=== PATIENT | male | born 1950 | race Caucasian/White ===

== ENCOUNTER 2017-09-30 14:06 | Emergency (ER) | payer BC ==
[~2017-09-30] VITALS: Ht 175.2 cm; Wt 82.6 kg
[~2017-09-30 14:06] MED LIST: ASPIRIN81 M1 PO; Coumadin5 MG PO; FERROUS SULFAT325 MG PO; FERROUS SULFATE1 GRA; KLOR-CON 1010 MEQ PO; LISINOPRIL40 MG PO; LOMOTIL 0.025 M1 TA1 PO; LOPRESSOR25 MG PO; OXYCODONE5 MG PO; PERCOCET 325 MG1 TA2 PO; PRAVACHOL20 MG PO; PRAVASTATIN SOD40 MG PO; PROTONIX40 MG PO; RANITIDINE150 MG; ZESTRIL5 MG PO; ZOFRAN ODT8 MG PO
[2017-09-30 14:47] LABS: BASO # 0.1 10*3/uL (0.0-0.1); BASO % 1.1 % (0.0-1.0); EOS # 0.2 10*3/uL (0.0-0.4); HEMATOCRIT 42.9 % (42.0-52.0); HEMOGLOBIN 14.7 g/dl (14.0-18.0); LYMPH # 2.3 10*3/uL (1.3-4.4); LYMPH % 30.5 % (27.0-41.0); MEAN CELL VOLUME 93.9 fl (80.0-94.0); MEAN CORPUSCULAR HGB 32.2 pg (27.0-31.0); MEAN CORPUSCULAR HGB CONC 34.3 g/dl (33.0-37.0); MEAN PLATELET VOLUME 10.5 fl (9.6-12.3); MONO # 0.6 10*3/uL (0.1-1.0); MONO % 7.8 % (3.0-9.0); NEUT # 4.3 10*3/uL (2.3-7.9); NEUT % 57.3 % (47.0-73.0); PLATELET COUNT AUTOMATED 212 10*3/uL (130-400); RED BLOOD COUNT 4.57 10*6/uL (4.50-5.90); RED CELL DISTRI WIDTH 14.5 % (0-14.5); WHITE BLOOD COUNT 7.5 10*3/uL (4.8-10.8)
[2017-09-30 15:04] LABS: ALKALINE PHOSPHATASE 68 U/L (45-117); BUN 14 mg/dl (7-24); CHLORIDE 108 mmol/L (98-107); CREATININE 0.94 mg/dL (0.70-1.30); POTASSIUM 3.5 mmol/L (3.5-5.1); SGOT/AST 30 IU/L (3-35); SGPT/ALT 36 U/L (12-78); SODIUM 145 mmol/L (136-145); TOTAL PROTEIN 7.8 gm/dL (6.4-8.2)
[2017-09-30 15:07] LABS: TROPONIN I < 0.015 ng/ml (<0.045)
[2017-09-30] MEDS ORDERED: AVPAK AZITHROM250 M1 PO (16:01)
== END 2017-09-30 16:03 | disposition home or self-care (01) ==
LOC: ED 14:06
PROVIDERS: Nurse Practitioner Family
DX: J18.8 Other pneumonia, unspecified organism (principal); R03.0 Elevated blood-pressure reading, without diagnosis of hypertension; Z88.0 Allergy status to penicillin; Z79.899 Other long term (current) drug therapy; Z79.02 Long term (current) use of antithrombotics/antiplatelets; Z79.82 Long term (current) use of aspirin

== ENCOUNTER 2017-10-06 10:06 | Emergency (ER) | payer OTHER, BC ==
[~2017-10-06] VITALS: Ht 182.8 cm; Wt 78.9 kg
[~2017-10-06 10:06] MED LIST changes: +AVPAK AZITHROM250 M1 PO
[2017-10-06 10:47] LABS: BASO # 0.1 10*3/uL (0.0-0.1); BASO % 1.2 % (0.0-1.0); EOS # 0.2 10*3/uL (0.0-0.4); EOS % 2.6 % (1.0-4.0); HEMATOCRIT 42.6 % (42.0-52.0); HEMOGLOBIN 14.6 g/dl (14.0-18.0); LYMPH # 1.8 10*3/uL (1.3-4.4); LYMPH % 27.4 % (27.0-41.0); MEAN CELL VOLUME 94.2 fl (80.0-94.0); MEAN CORPUSCULAR HGB 32.3 pg (27.0-31.0); MEAN CORPUSCULAR HGB CONC 34.3 g/dl (33.0-37.0); MEAN PLATELET VOLUME 10.4 fl (9.6-12.3); MONO # 0.6 10*3/uL (0.1-1.0); MONO % 8.5 % (3.0-9.0); NEUT % 60.1 % (47.0-73.0); PLATELET COUNT AUTOMATED 197 10*3/uL (130-400); RED BLOOD COUNT 4.52 10*6/uL (4.50-5.90); RED CELL DISTRI WIDTH 14.2 % (0-14.5); WHITE BLOOD COUNT 6.6 10*3/uL (4.8-10.8)
[2017-10-06 11:01] LABS: ALBUMIN 3.8 gm/dl (3.1-4.5); ALKALINE PHOSPHATASE 69 U/L (45-117); BUN 15 mg/dl (7-24); CHLORIDE 107 mmol/L (98-107); CREATININE 0.93 mg/dL (0.70-1.30); POTASSIUM 2.9 mmol/L (3.5-5.1); SGOT/AST 17 IU/L (3-35); SGPT/ALT 26 U/L (12-78); SODIUM 140 mmol/L (136-145); TOTAL PROTEIN 7.4 gm/dL (6.4-8.2)
[2017-10-06] MEDS ORDERED: KLOR-CON 88 ME1 PO (13:24)
== END 2017-10-06 13:43 | disposition home or self-care (01) ==
LOC: ED 10:06
PROVIDERS: Emergency Medicine
DX: E78.6 Lipoprotein deficiency (principal); Z79.82 Long term (current) use of aspirin; Z79.01 Long term (current) use of anticoagulants; Z88.0 Allergy status to penicillin

== ENCOUNTER 2017-12-17 20:23 | Inpatient (IN) | payer MEDICARE, BC ==
[~2017-12-17] VITALS: Ht 175.2 cm; Wt 81.8 kg
--- NOTE | ~2017-12-17 | PR ---
[place], [place] PROGRESS NOTE NAME: RENO GARCIA UNIT #: [id number] ROOM: 428 DOCTOR: LIN FOWLER MD BIRTHDATE: [birth year] DOS: 12/19/2017 The patient has been admitted to hospital with multiple fractures of the ribs. He is feeling better and he is being discharged. His discharge summary has already been dictated. He is feeling stable and will be followed by Dr. Moffett in the office next week. LIN FOWLER MD CM:PNTRANS [id number] LIN FOWLER MD 12/19/172026 interface
[~2017-12-17 20:23] MED LIST changes: +KLOR-CON 88 ME1 PO
[2017-12-17 20:32] VITALS: BP 141/76
[2017-12-17 21:25] LABS: BASO # 0.1 10*3/uL (0.0-0.1); BASO % 0.4 % (0.0-1.0); EOS # 0.1 10*3/uL (0.0-0.4); EOS % 0.9 % (1.0-4.0); HEMATOCRIT 42.5 % (42.0-52.0); HEMOGLOBIN 14.8 g/dl (14.0-18.0); LYMPH # 1.2 10*3/uL (1.3-4.4); LYMPH % 8.9 % (27.0-41.0); MEAN CELL VOLUME 92.8 fl (80.0-94.0); MEAN CORPUSCULAR HGB 32.3 pg (27.0-31.0); MEAN CORPUSCULAR HGB CONC 34.8 g/dl (33.0-37.0); MONO # 0.9 10*3/uL (0.1-1.0); MONO % 6.4 % (3.0-9.0); NEUT # 11.1 10*3/uL (2.3-7.9); PLATELET COUNT AUTOMATED 175 10*3/uL (130-400); RED BLOOD COUNT 4.58 10*6/uL (4.50-5.90); RED CELL DISTRI WIDTH 12.9 % (0-14.5); WHITE BLOOD COUNT 13.4 10*3/uL (4.8-10.8)
[2017-12-17 21:35] LABS: ACT PARTIAL THROMBO TIME 24.7 SECONDS (20.8-31.5)
[2017-12-17 21:52] VITALS: BP 118/76
[2017-12-17 21:55] LABS: ALBUMIN 3.8 gm/dl (3.1-4.5); ALKALINE PHOSPHATASE 57 U/L (45-117); BUN 19 mg/dl (7-24); CHLORIDE 104 mmol/L (98-107); CREATININE 1.13 mg/dL (0.70-1.30); LIPASE 115 U/L (73-393); POTASSIUM 3.6 mmol/L (3.5-5.1); SGOT/AST 25 IU/L (3-35); SGPT/ALT 28 U/L (12-78); SODIUM 139 mmol/L (136-145); TOTAL PROTEIN 7.3 gm/dL (6.4-8.2); TROPONIN I < 0.015 ng/ml (<0.045)
[2017-12-17 22:27] LABS: BILIRUBIN NEGATIVE (NEGATIVE); BLOOD NEGATIVE (NEGATIVE); CLARITY SL CLOUDY (CLEAR); COLOR YELLOW (YELLOW); GLUCOSE NEGATIVE (NEGATIVE); KETONE TRACE (NEGATIVE); LEUKO ESTERASE NEGATIVE (NEGATIVE); NITRITE NEGATIVE (NEGATIVE); SPECIFIC GRAVITY 1.025 (1.005-1.030); UROBILINOGEN 0.2 E.U./dl (0.2-1.0)
[2017-12-17 22:33] LABS: BACTERIA TRACE; EPITHELIAL CELLS 0-2; WBC 0-2 wbc/hpf (0-5)
[2017-12-17 23:31] VITALS: BP 104/83
[2017-12-18 01:15] VITALS: BP 101/60
[2017-12-18 01:50] VITALS: BP 128/79
[2017-12-18] MEDS ORDERED: TOPIRAMATE100 M2 PO (02:23)
[2017-12-18] MEDS ORDERED: ZESTORETIC 20-1 EACH PO (02:25)
[2017-12-18] MEDS ORDERED: OMEPRAZOLE D/R20 MG PO (02:28)
[2017-12-18] MEDS ORDERED: ATORVASTATIN CA80 M1 PO (02:32)
[2017-12-18] MEDS ORDERED: VIAGRA100 MG PO (02:32)
[2017-12-18 08:00] VITALS: BP 127/82
[2017-12-18 12:00] VITALS: BP 134/86
[2017-12-18 16:00] VITALS: BP 140/90
[2017-12-18 20:00] VITALS: BP 123/80
[2017-12-19] VITALS: BP 152/78
[2017-12-19 07:01] LABS: BASO # 0.1 10*3/uL (0.0-0.1); BASO % 0.8 % (0.0-1.0); EOS # 0.2 10*3/uL (0.0-0.4); EOS % 1.9 % (1.0-4.0); HEMOGLOBIN 15.2 g/dl (14.0-18.0); LYMPH # 1.4 10*3/uL (1.3-4.4); LYMPH % 13.9 % (27.0-41.0); MEAN CELL VOLUME 93.8 fl (80.0-94.0); MEAN CORPUSCULAR HGB 32.4 pg (27.0-31.0); MEAN CORPUSCULAR HGB CONC 34.5 g/dl (33.0-37.0); MEAN PLATELET VOLUME 10.5 fl (9.6-12.3); MONO # 0.8 10*3/uL (0.1-1.0); NEUT # 7.4 10*3/uL (2.3-7.9); PLATELET COUNT AUTOMATED 168 10*3/uL (130-400); RED BLOOD COUNT 4.69 10*6/uL (4.50-5.90); RED CELL DISTRI WIDTH 13.2 % (0-14.5); WHITE BLOOD COUNT 9.9 10*3/uL (4.8-10.8)
[2017-12-19 07:38] LABS: CHLORIDE 104 mmol/L (98-107); POTASSIUM 3.3 mmol/L (3.5-5.1); SODIUM 139 mmol/L (136-145)
[2017-12-19 07:39] LABS: ACT PARTIAL THROMBO TIME 26.6 SECONDS (20.8-31.5)
[2017-12-19 08:00] VITALS: BP 131/85
[2017-12-19 08:01] LABS: BUN 17 mg/dl (7-24); CHOLESTEROL 202 mg/dL (<200); CREATININE 0.88 mg/dL (0.70-1.30); FREE T4 1.39 ng/dl (0.76-1.46); HDL CHOLESTEROL 71 mg/dl (40-60); LDL CHOLESTEROL 108 mg/dL (9-159); TRIGLYCERIDES 117 mg/dl (<150); VLDL CHOLESTEROL 23 mg/dL (6-40)
[2017-12-19] MEDS ORDERED: PERCOCET 7.5-31 EACH PO (09:12)
[2017-12-19] MEDS ORDERED: SOF-LAX100 MG PO (10:38)
[2017-12-19] MEDS ORDERED: K-TAB20 MEQ PO (11:58)
[2017-12-19] MEDS ORDERED: FOLGARD TABLET1 EACH PO (12:03)
== END 2017-12-19 11:45 | disposition home or self-care (01) | DRG 185 ==
LOC: ED 20:23 → 4E 12-18 00:30 → EDHOLD 12-18 00:30 → 4E 12-18 00:53
PROVIDERS: Emergency Medicine Emergency Medical Services; Internal Medicine
DX: S22.41XA Multiple fractures of ribs, right side, initial encounter for closed fracture (principal); I71.2 Thoracic aortic aneurysm, without rupture; M51.35 Other intervertebral disc degeneration, thoracolumbar region; M54.9 Dorsalgia, unspecified; G89.29 Other chronic pain; I10 Essential (primary) hypertension; K21.9 Gastro-esophageal reflux disease without esophagitis; D72.825 Bandemia; R00.1 Bradycardia, unspecified; E78.2 Mixed hyperlipidemia; E87.6 Hypokalemia; E55.9 Vitamin D deficiency, unspecified; W10.8XXA Fall (on) (from) other stairs and steps, initial encounter; Y93.01 Activity, walking, marching and hiking; Y92.098 Other place in other non-institutional residence as the place of occurrence of the external cause; Z87.891 Personal history of nicotine dependence; Z95.2 Presence of prosthetic heart valve; Z80.3 Family history of malignant neoplasm of breast; Z88.0 Allergy status to penicillin; Z79.82 Long term (current) use of aspirin; Z79.899 Other long term (current) drug therapy; Y99.8 Other external cause status; Y93.89 Activity, other specified

== ENCOUNTER 2017-12-20 08:57 | Inpatient (IN) | payer MEDICARE, BC ==
[~2017-12-20] VITALS: Ht 175.2 cm; Wt 80.3 kg
[2017-12-20] VITALS (7 sets, daily range): BP systolic 122–151; BP diastolic 55–88
--- NOTE | ~2017-12-20 | WRIGHTHP ---
[place], [place] PATIENT HISTORY AND PHYSICAL EXAM NAME: RENO GARCIA UNIT #: [id number] ROOM: 407 DOCTOR: LIN FOWLER MD BIRTHDATE: [birth year] DOS: 12/20/2017 HISTORY OF PRESENT ILLNESS: This is a who was only discharged from the hospital yesterday when he was admitted to hospital with multiple rib fractures and he is still having severe pain and this pain is uncontrollable due to the multiple right-sided rib fractures and he could not handle it. His could not handle at home, so she brought him to an Emergency Department again and admitted to the hospital due to uncontrollable level of pain and may need to be placed in the prison and the patient has been taking Percocet, Colace, vitamin D and he is also taking metoprolol, lisinopril and hydrochlorothiazide, ____, Lipitor 80 mg daily, aspirin 81 mg daily. PHYSICAL EXAMINATION: GENERAL: The patient is in pain. VITAL SIGNS: His temperature 98, pulse 72, respirations 18, blood pressure is 151/88, pulse ox is 96. HEART: Regular. CHEST: He is having decreased breath sound on the right side, but he is having multiple rib tenderness on the right side. ABDOMEN: Soft. LABORATORY DATA: His lab report is essentially unremarkable. ADMITTING DIAGNOSES: The cause for his admission is multiple rib fractures with severe pain, ____, hypertension and history of heart disease in the past. LIN FOWLER MD CM:HISPHYS:PATIENT HISTORY AND PHYSICAL EXAMINATION [id number] LIN FOWLER MD 12/20/17 1356 interface
[~2017-12-20 08:57] MED LIST changes: +ATORVASTATIN CA80 M1 PO; +FOLGARD TABLET1 EACH PO; +K-TAB20 MEQ PO; +OMEPRAZOLE D/R20 MG PO; +PERCOCET 7.5-31 EACH PO; +SOF-LAX100 MG PO; +TOPIRAMATE100 M2 PO; +VIAGRA100 MG PO; +ZESTORETIC 20-1 EACH PO
[2017-12-20 10:14] LABS: BASO # 0.1 10*3/uL (0.0-0.1); BASO % 0.8 % (0.0-1.0); EOS # 0.2 10*3/uL (0.0-0.4); EOS % 2.1 % (1.0-4.0); HEMATOCRIT 40.7 % (42.0-52.0); HEMOGLOBIN 14.3 g/dl (14.0-18.0); LYMPH # 1.1 10*3/uL (1.3-4.4); LYMPH % 12.7 % (27.0-41.0); MEAN CELL VOLUME 92.1 fl (80.0-94.0); MEAN CORPUSCULAR HGB 32.4 pg (27.0-31.0); MEAN CORPUSCULAR HGB CONC 35.1 g/dl (33.0-37.0); MEAN PLATELET VOLUME 10.1 fl (9.6-12.3); MONO # 0.9 10*3/uL (0.1-1.0); NEUT # 6.5 10*3/uL (2.3-7.9); NEUT % 74.1 % (47.0-73.0); PLATELET COUNT AUTOMATED 155 10*3/uL (130-400); RED BLOOD COUNT 4.42 10*6/uL (4.50-5.90); RED CELL DISTRI WIDTH 12.9 % (0-14.5); WHITE BLOOD COUNT 8.8 10*3/uL (4.8-10.8)
[2017-12-20 10:39] LABS: BUN 15 mg/dl (7-24); CHLORIDE 107 mmol/L (98-107); CREATININE 0.83 mg/dL (0.70-1.30); POTASSIUM 3.4 mmol/L (3.5-5.1); SODIUM 139 mmol/L (136-145)
[2017-12-21] VITALS: BP 144/90
[2017-12-21 07:11] LABS: BASO # 0.1 10*3/uL (0.0-0.1); EOS # 0.2 10*3/uL (0.0-0.4); EOS % 2.7 % (1.0-4.0); HEMATOCRIT 43.3 % (42.0-52.0); HEMOGLOBIN 14.7 g/dl (14.0-18.0); LYMPH # 1.5 10*3/uL (1.3-4.4); LYMPH % 19.3 % (27.0-41.0); MEAN CELL VOLUME 93.9 fl (80.0-94.0); MEAN CORPUSCULAR HGB 31.9 pg (27.0-31.0); MEAN CORPUSCULAR HGB CONC 33.9 g/dl (33.0-37.0); MEAN PLATELET VOLUME 10.7 fl (9.6-12.3); MONO # 0.8 10*3/uL (0.1-1.0); MONO % 10.6 % (3.0-9.0); NEUT # 5.1 10*3/uL (2.3-7.9); PLATELET COUNT AUTOMATED 173 10*3/uL (130-400); RED BLOOD COUNT 4.61 10*6/uL (4.50-5.90); RED CELL DISTRI WIDTH 13.1 % (0-14.5); WHITE BLOOD COUNT 7.7 10*3/uL (4.8-10.8)
[2017-12-21 07:46] LABS: ALBUMIN 3.5 gm/dl (3.1-4.5); BUN 15 mg/dl (7-24); CHLORIDE 106 mmol/L (98-107); CREATININE 0.86 mg/dL (0.70-1.30); PHOSPHOROUS 3.6 mg/dL (2.5-4.9); POTASSIUM 3.9 mmol/L (3.5-5.1); SGOT/AST 23 IU/L (3-35); SGPT/ALT 26 U/L (12-78); SODIUM 142 mmol/L (136-145); TOTAL PROTEIN 7.1 gm/dL (6.4-8.2)
[2017-12-21 07:47] LABS: ALKALINE PHOSPHATASE 51 U/L (45-117)
[2017-12-21 08:00] VITALS: BP 144/92
[2017-12-21 16:00] VITALS: BP 109/66
[2017-12-22] VITALS: BP 150/90
[2017-12-22 08:00] VITALS: BP 160/88
[2017-12-22 12:00] VITALS: BP 173/83
[2017-12-23] VITALS: BP 149/82
[2017-12-23 08:00] VITALS: BP 172/88
[2017-12-23] MEDS ORDERED: PERCOCET 7.5-31 EACH PO (14:01)
== END 2017-12-23 15:18 | disposition other institution (70) | DRG 204 ==
LOC: ED 08:57 → EDHOLD 10:13 → 4E 10:13
PROVIDERS: Emergency Medicine; Hospitalist
DX: R07.81 Pleurodynia (principal); E55.9 Vitamin D deficiency, unspecified; S22.41XD Multiple fractures of ribs, right side, subsequent encounter for fracture with routine healing; E87.6 Hypokalemia; K21.9 Gastro-esophageal reflux disease without esophagitis; E78.5 Hyperlipidemia, unspecified; I10 Essential (primary) hypertension; F12.90 Cannabis use, unspecified, uncomplicated; M51.35 Other intervertebral disc degeneration, thoracolumbar region; G89.29 Other chronic pain; W10.8XXD Fall (on) (from) other stairs and steps, subsequent encounter; Z95.2 Presence of prosthetic heart valve; Z88.0 Allergy status to penicillin; Z79.899 Other long term (current) drug therapy; Z87.891 Personal history of nicotine dependence; Z80.3 Family history of malignant neoplasm of breast

== ENCOUNTER 2018-02-25 09:14 | Emergency (ER) | payer OTHER, BC ==
[~2018-02-25] VITALS: Wt 71.7 kg
[2018-02-25] MEDS ORDERED: MEDROL DOSEPAK4 MG PO (11:45)
== END 2018-02-25 11:53 | disposition home or self-care (01) ==
LOC: ED 09:14
DX: M48.061 Spinal stenosis, lumbar region without neurogenic claudication (principal); G89.29 Other chronic pain; K21.9 Gastro-esophageal reflux disease without esophagitis; E78.5 Hyperlipidemia, unspecified; F12.10 Cannabis abuse, uncomplicated; I10 Essential (primary) hypertension; Z87.891 Personal history of nicotine dependence; Z98.890 Other specified postprocedural states; Z79.82 Long term (current) use of aspirin; Z79.899 Other long term (current) drug therapy; Z88.0 Allergy status to penicillin

== ENCOUNTER 2018-03-11 15:01 | Emergency (ER) | payer OTHER, MEDICARE, BC ==
[~2018-03-11] VITALS: Ht 175.2 cm; Wt 74.8 kg
[~2018-03-11 15:01] MED LIST changes: +MEDROL DOSEPAK4 MG PO
[2018-03-11] MEDS ORDERED: LIDODERM1 EACH T (16:02)
== END 2018-03-11 16:30 | disposition home or self-care (01) ==
LOC: ED 15:01
DX: G89.29 Other chronic pain (principal); F12.10 Cannabis abuse, uncomplicated; Z87.891 Personal history of nicotine dependence; Z98.890 Other specified postprocedural states; Z79.899 Other long term (current) drug therapy; Z79.82 Long term (current) use of aspirin; Z88.0 Allergy status to penicillin

== ENCOUNTER 2018-03-12 07:34 | Emergency (ER) | payer OTHER, MEDICARE, BC ==
[~2018-03-12] VITALS: Ht 175.2 cm; Wt 74.8 kg
[~2018-03-12 07:34] MED LIST changes: +LIDODERM1 EACH T
[2018-03-12 07:57] LABS: BASO # 0.1 10*3/uL (0.0-0.1); BASO % 0.9 % (0.0-1.0); EOS # 0.2 10*3/uL (0.0-0.4); EOS % 1.4 % (1.0-4.0); HEMATOCRIT 45.3 % (42.0-52.0); HEMOGLOBIN 14.9 g/dl (14.0-18.0); LYMPH # 1.6 10*3/uL (1.3-4.4); LYMPH % 14.1 % (27.0-41.0); MEAN CELL VOLUME 99.1 fl (80.0-94.0); MEAN CORPUSCULAR HGB 32.6 pg (27.0-31.0); MEAN CORPUSCULAR HGB CONC 32.9 g/dl (33.0-37.0); MEAN PLATELET VOLUME 10.3 fl (9.6-12.3); MONO # 0.8 10*3/uL (0.1-1.0); MONO % 6.6 % (3.0-9.0); NEUT # 8.8 10*3/uL (2.3-7.9); NEUT % 76.6 % (47.0-73.0); PLATELET COUNT AUTOMATED 211 10*3/uL (130-400); RED BLOOD COUNT 4.57 10*6/uL (4.50-5.90); RED CELL DISTRI WIDTH 13.8 % (0-14.5); WHITE BLOOD COUNT 11.5 10*3/uL (4.8-10.8)
[2018-03-12 08:06] LABS: ACT PARTIAL THROMBO TIME 24.7 SECONDS (20.8-31.5)
[2018-03-12 08:18] LABS: ALBUMIN 3.2 gm/dl (3.1-4.5); ALKALINE PHOSPHATASE 67 U/L (45-117); BUN 9 mg/dl (7-24); CHLORIDE 104 mmol/L (98-107); CREATININE 0.85 mg/dL (0.70-1.30); POTASSIUM 3.3 mmol/L (3.5-5.1); SGOT/AST 55 IU/L (3-35); SGPT/ALT 37 U/L (12-78); SODIUM 138 mmol/L (136-145); TOTAL PROTEIN 6.2 gm/dL (6.4-8.2)
[2018-03-12 08:20] LABS: TROPONIN I < 0.015 ng/ml (<0.045)
== END 2018-03-12 08:16 | disposition short-term general hospital (02) ==
LOC: ED 07:34
PROVIDERS: Internal Medicine
DX: I21.29 ST elevation (STEMI) myocardial infarction involving other sites (principal); G89.29 Other chronic pain; K21.9 Gastro-esophageal reflux disease without esophagitis; I10 Essential (primary) hypertension; E78.5 Hyperlipidemia, unspecified; F12.10 Cannabis abuse, uncomplicated; Z87.891 Personal history of nicotine dependence; Z98.890 Other specified postprocedural states; Z79.82 Long term (current) use of aspirin; Z88.0 Allergy status to penicillin; Z79.899 Other long term (current) drug therapy; Z95.1 Presence of aortocoronary bypass graft

== ENCOUNTER 2018-09-13 06:56 | Emergency (ER) | payer BC ==
[~2018-09-13] VITALS: Ht 172.7 cm; Wt 73.0 kg
--- NOTE | ~2018-09-13 | EKG ---
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
[2018-09-13 07:11] LABS: BASO # 0.1 10*3/uL (0.0-0.1); EOS # 0.3 10*3/uL (0.0-0.4); EOS % 3.2 % (1.0-4.0); HEMATOCRIT 47.3 % (42.0-52.0); HEMOGLOBIN 15.6 g/dl (14.0-18.0); LYMPH % 23.6 % (27.0-41.0); MEAN CELL VOLUME 96.3 fl (80.0-94.0); MEAN CORPUSCULAR HGB 31.8 pg (27.0-31.0); MONO # 0.8 10*3/uL (0.1-1.0); MONO % 8.7 % (3.0-9.0); NEUT # 5.5 10*3/uL (2.3-7.9); NEUT % 63.2 % (47.0-73.0); PLATELET COUNT AUTOMATED 202 10*3/uL (130-400); RED BLOOD COUNT 4.91 10*6/uL (4.50-5.90); RED CELL DISTRI WIDTH 13.1 % (0-14.5); WHITE BLOOD COUNT 8.7 10*3/uL (4.8-10.8)
[2018-09-13 07:20] LABS: ACT PARTIAL THROMBO TIME 25.6 SECONDS (20.8-31.5)
[2018-09-13 07:27] LABS: ALBUMIN 3.7 gm/dl (3.1-4.5); ALKALINE PHOSPHATASE 70 U/L (45-117); BUN 18 mg/dl (7-24); CHLORIDE 109 mmol/L (98-107); POTASSIUM 3.9 mmol/L (3.5-5.1); SGOT/AST 19 IU/L (3-35); SGPT/ALT 22 U/L (12-78); SODIUM 143 mmol/L (136-145); TOTAL PROTEIN 7.1 gm/dL (6.4-8.2)
[2018-09-13 07:30] LABS: TROPONIN I < 0.015 ng/ml (<0.045)
== END 2018-09-13 07:45 | disposition short-term general hospital (02) ==
LOC: ED 06:56
PROVIDERS: Emergency Medicine
DX: I21.3 ST elevation (STEMI) myocardial infarction of unspecified site (principal); I25.2 Old myocardial infarction; G89.29 Other chronic pain; I10 Essential (primary) hypertension; K21.9 Gastro-esophageal reflux disease without esophagitis; E78.5 Hyperlipidemia, unspecified; Z86.73 Personal history of transient ischemic attack (TIA), and cerebral infarction without residual deficits; Z88.0 Allergy status to penicillin; Z79.82 Long term (current) use of aspirin; Z79.899 Other long term (current) drug therapy; Z87.891 Personal history of nicotine dependence

== ENCOUNTER 2020-03-17 14:23 | Emergency (ER) | payer BC, OTHER ==
[~2020-03-17] VITALS: Ht 175.2 cm; Wt 74.8 kg
[2020-03-17 15:45] LABS: BASO # 0.1 10*3/uL (0.0-0.1); BASO % 0.9 % (0.0-1.0); EOS # 0.1 10*3/uL (0.0-0.4); EOS % 1.2 % (1.0-4.0); HEMATOCRIT 48.4 % (42.0-52.0); LYMPH # 1.1 10*3/uL (1.3-4.4); LYMPH % 9.7 % (27.0-41.0); MEAN CELL VOLUME 96.4 fl (80.0-94.0); MEAN CORPUSCULAR HGB 33.7 pg (27.0-31.0); MEAN CORPUSCULAR HGB CONC 34.9 g/dl (33.0-37.0); MONO # 0.7 10*3/uL (0.1-1.0); MONO % 6.2 % (3.0-9.0); NEUT # 9.2 10*3/uL (2.3-7.9); NEUT % 81.6 % (47.0-73.0); PLATELET COUNT AUTOMATED 189 10*3/uL (130-400); RED BLOOD COUNT 5.02 10*6/uL (4.50-5.90); RED CELL DISTRI WIDTH 13.3 % (0-14.5); WHITE BLOOD COUNT 11.3 10*3/uL (4.8-10.8)
[2020-03-17 16:02] LABS: ALBUMIN 3.4 gm/dl (3.1-4.5); ALKALINE PHOSPHATASE 61 U/L (45-117); BUN 9 mg/dl (7-24); CHLORIDE 109 mmol/L (98-107); CREATININE 0.78 mg/dL (0.70-1.30); POTASSIUM 3.3 mmol/L (3.5-5.1); SGOT/AST 21 IU/L (3-35); SGPT/ALT 22 U/L (12-78); SODIUM 140 mmol/L (136-145); TOTAL PROTEIN 6.6 gm/dL (6.4-8.2)
[2020-03-17 16:03] LABS: TROPONIN I < 0.015 ng/ml (<0.045)
== END 2020-03-17 18:53 | disposition other institution (70) ==
LOC: ED 14:23
PROVIDERS: Emergency Medicine
DX: R07.9 Chest pain, unspecified (principal); R56.9 Unspecified convulsions; I10 Essential (primary) hypertension; F17.200 Nicotine dependence, unspecified, uncomplicated; Z88.0 Allergy status to penicillin; Z79.899 Other long term (current) drug therapy; Z95.1 Presence of aortocoronary bypass graft

== ENCOUNTER 2020-05-17 11:51 | Emergency (ER) | payer OTHER ==
[~2020-05-17] VITALS: Ht 175.2 cm; Wt 68.9 kg
[2020-05-17 13:21] LABS: BASO # 0.1 10*3/uL (0.0-0.1); BASO % 0.7 % (0.0-1.0); EOS # 0.2 10*3/uL (0.0-0.4); EOS % 2.1 % (1.0-4.0); HEMATOCRIT 46.6 % (42.0-52.0); LYMPH # 1.7 10*3/uL (1.3-4.4); LYMPH % 19.9 % (27.0-41.0); MEAN CELL VOLUME 95.3 fl (80.0-94.0); MEAN CORPUSCULAR HGB 33.3 pg (27.0-31.0); MEAN PLATELET VOLUME 10.4 fl (9.6-12.3); MONO # 0.7 10*3/uL (0.1-1.0); MONO % 7.7 % (3.0-9.0); NEUT # 5.9 10*3/uL (2.3-7.9); NEUT % 69.4 % (47.0-73.0); PLATELET COUNT AUTOMATED 197 10*3/uL (130-400); RED BLOOD COUNT 4.89 10*6/uL (4.50-5.90); RED CELL DISTRI WIDTH 13.2 % (0-14.5); WHITE BLOOD COUNT 8.6 10*3/uL (4.8-10.8)
[2020-05-17 13:40] LABS: COLOR YELLOW (YELLOW)
[2020-05-17 13:41] LABS: BILIRUBIN NEGATIVE (NEGATIVE); BLOOD NEGATIVE (NEGATIVE); CLARITY CLEAR (CLEAR); GLUCOSE NEGATIVE (NEGATIVE); KETONE NEGATIVE (NEGATIVE); LEUKO ESTERASE NEGATIVE (NEGATIVE); MUCOUS 2+; NITRITE NEGATIVE (NEGATIVE); RBC 0-2 rbc/hpf (0-2); UROBILINOGEN 0.2 E.U./dl (0.2-1.0)
[2020-05-17 13:45] LABS: ALBUMIN 3.8 gm/dl (3.1-4.5); ALKALINE PHOSPHATASE 65 U/L (45-117); BUN 16 mg/dl (7-24); CHLORIDE 106 mmol/L (98-107); CREATININE 0.89 mg/dL (0.70-1.30); SGOT/AST 34 IU/L (3-35); SGPT/ALT 34 U/L (12-78); SODIUM 138 mmol/L (136-145); TOTAL PROTEIN 7.4 gm/dL (6.4-8.2)
[2020-05-17 13:47] LABS: POTASSIUM 3.8 mmol/L (3.5-5.1)
== END 2020-05-17 14:23 | disposition home or self-care (01) ==
LOC: ED 11:51
PROVIDERS: Emergency Medicine
DX: K40.90 Unilateral inguinal hernia, without obstruction or gangrene, not specified as recurrent (principal); K21.9 Gastro-esophageal reflux disease without esophagitis; E78.5 Hyperlipidemia, unspecified; I10 Essential (primary) hypertension; Z88.0 Allergy status to penicillin; Z79.899 Other long term (current) drug therapy; Z79.82 Long term (current) use of aspirin; Z87.891 Personal history of nicotine dependence

== ENCOUNTER 2021-04-16 06:08 | Emergency (ER) | payer BC ==
[~2021-04-16] VITALS: Ht 177.8 cm; Wt 2.1 kg
[2021-04-16 06:31] LABS: BASO # 0.1 10*3/uL (0.0-0.1); BASO % 0.7 % (0.0-1.0); EOS # 0.1 10*3/uL (0.0-0.4); EOS % 0.8 % (1.0-4.0); HEMATOCRIT 48.6 % (42.0-52.0); LYMPH # 0.9 10*3/uL (1.3-4.4); LYMPH % 9.8 % (27.0-41.0); MEAN CELL VOLUME 96.2 fl (80.0-94.0); MEAN CORPUSCULAR HGB 33.5 pg (27.0-31.0); MEAN CORPUSCULAR HGB CONC 34.8 g/dl (33.0-37.0); MEAN PLATELET VOLUME 10.2 fl (9.6-12.3); MONO # 0.8 10*3/uL (0.1-1.0); NEUT # 7.7 10*3/uL (2.3-7.9); NEUT % 80.4 % (47.0-73.0); PLATELET COUNT AUTOMATED 196 10*3/uL (130-400); RED BLOOD COUNT 5.05 10*6/uL (4.50-5.90); RED CELL DISTRI WIDTH 13.2 % (0-14.5); WHITE BLOOD COUNT 9.5 10*3/uL (4.8-10.8)
[2021-04-16 06:49] LABS: BILIRUBIN Negative (Negative); BLOOD Negative (Negative); CLARITY Clear (Clear); COLOR Yellow (Yellow); GLUCOSE Negative (Negative); KETONE Negative (Negative); LEUKO ESTERASE Negative (Negative); NITRITE Negative (Negative)
[2021-04-16 06:49] LABS: ALBUMIN 3.3 gm/dl (3.1-4.5); ALKALINE PHOSPHATASE 71 U/L (45-117); BUN 14 mg/dl (7-24); CHLORIDE 110 mmol/L (98-107); CREATININE 0.84 mg/dL (0.70-1.30); POTASSIUM 4.1 mmol/L (3.5-5.1); SGOT/AST 30 IU/L (3-35); SGPT/ALT 21 U/L (12-78); SODIUM 135 mmol/L (136-145); TOTAL PROTEIN 7.3 gm/dL (6.4-8.2)
[2021-04-16 06:53] LABS: ETHYL ALCOHOL < 3.0 mg/dl (<3)
[2021-04-16 06:56] LABS: URINE AMPHETAMINES < 1000 (1000ng/ml); URINE BARBITURATES < 200 (200ng/ml); URINE BENZODIAZEPINES < 200 (200ng/ml); URINE CANNABINOIDS (THC) > 50 (50ng/ml); URINE COCAINE < 300 (300ng/ml); URINE METHADONE < 300 (300ng/ml); URINE OPIATES < 300 (300ng/ml)
[2021-04-16 06:57] LABS: URINE PHENCYCLIDINE < 25 (25ng/ml)
[2021-04-16 07:05] LABS: EPITHELIAL CELLS 0-2
== END 2021-04-16 09:56 | disposition short-term general hospital (02) ==
LOC: ED 06:08
PROVIDERS: Internal Medicine
DX: I63.9 Cerebral infarction, unspecified (principal); Z98.890 Other specified postprocedural states; Z88.0 Allergy status to penicillin; Z79.899 Other long term (current) drug therapy; Z79.82 Long term (current) use of aspirin